=== PATIENT | male | born 1945 | race Caucasian/White ===

== ENCOUNTER 2016-05-16 10:48 | Emergency (ER) | payer MEDICARE | END 2016-05-16 12:28 | disposition home or self-care (01) | LOC: D.ER 10:48 | DX: R07.89 Other chest pain (principal); E11.9 Type 2 diabetes mellitus without complications; I10 Essential (primary) hypertension ==

== ENCOUNTER 2016-09-17 17:52 | Emergency (ER) | payer MEDICARE | END 2016-09-17 20:58 | disposition home or self-care (01) | LOC: D.ER 17:52 | DX: M25.551 Pain in right hip (principal); M51.36 Other intervertebral disc degeneration, lumbar region; M54.30 Sciatica, unspecified side; F17.200 Nicotine dependence, unspecified, uncomplicated; E11.9 Type 2 diabetes mellitus without complications; I10 Essential (primary) hypertension ==

== ENCOUNTER 2016-09-27 10:30 | Emergency (ER) | payer MEDICARE | END 2016-09-27 15:40 | disposition home or self-care (01) | LOC: D.ER 10:30 | DX: M16.11 Unilateral primary osteoarthritis, right hip (principal); W19.XXXA Unspecified fall, initial encounter; Y93.89 Activity, other specified; Y92.019 Unspecified place in single-family (private) house as the place of occurrence of the external cause; I10 Essential (primary) hypertension; E11.9 Type 2 diabetes mellitus without complications ==